=== PATIENT | male | born 1990 | race Hispanic/Latino ===

== ENCOUNTER 2018-11-23 06:02 | Emergency (ER) | payer OTHER ==
[~2018-11-23] VITALS: Ht 180.3 cm; Wt 92.0 kg
[2018-11-23] MEDS ORDERED: MELO15TA28 PO (06:09)
[2018-11-23] MEDS ORDERED: NS 1,000 ML IV ONE (06:30)
[2018-11-23] MEDS ORDERED: ASPIRIN 81 MG CHEW TABLET PO ONE (06:30)
[2018-11-23 07:14] LABS: BASO % 0.5 % (0.0-1.0); EOS # 0.2 10^3/uL (0.0-0.5); EOS % 2.5 % (0.0-3.0); HEMATOCRIT 39.9 % (42.0-52.0); HEMOGLOBIN 13.8 g/dl (13.5-17.5); LYMPH # 1.4 10^3/uL (1.5-5.0); LYMPH % 18.7 % (24.0-44.0); MEAN CORPUSCULAR HEMOGLOBIN 31.4 pg (27.0-33.0); MEAN CORPUSCULAR HGB CONC 34.6 g/dl (32.0-36.5); MEAN CORPUSCULAR VOLUME 90.7 fl (80.0-96.0); MONO # 0.5 10^3/uL (0.0-0.8); MONO % 6.5 % (0.0-5.0); NEUTROPHILS # 5.3 10^3/uL (1.5-8.5); NEUTROPHILS % 71.7 % (36.0-66.0); PLATELET COUNT, AUTOMATED 197 10^3/uL (150-450); WHITE BLOOD COUNT 7.3 10^3/uL (4.0-10.0)
--- NOTE | 2018-11-23 07:16 | ECGEPIP ---
- ED Test Date: 2018-11-23 Pat Name: HEATHER SOSA Department: Room: - Gender: Male Ortho Assistant: jimmy : 1990 Requested By: FRED Marie Order Number: [id number] Reading MD: Jose Carlos Dudley Measurements Intervals [place] Rate: 100 P: 68 AL: 142 QRS: 53 QRSD: 93 T: 37 QT: 356 QTc: 459 Interpretive Statements SINUS TACHYCARDIA NO PRIORS FOR COMPARISON Electronically Signed on 11-23-2018 7:16:53 EDT by Jose Carlos Dudley
[2018-11-23 07:26] LABS: INR 1.05; PROTHROMBIN TIME 13.4 SECONDS (11.8-14.0)
[2018-11-23 07:27] LABS: PARTIAL THROMBOPLASTIN TIME 31.6 SECONDS (25.0-38.4)
[2018-11-23 07:41] LABS: ALBUMIN 3.9 GM/DL (3.2-5.2); ALT/SGPT 23 U/L (12-78); BILIRUBIN,DIRECT 0.1 MG/DL (0.0-0.2); BILIRUBIN,TOTAL 0.5 MG/DL (0.2-1.0); BLOOD UREA NITROGEN 21 MG/DL (7-18); CALCIUM LEVEL 8.8 MG/DL (8.5-10.1); CARBON DIOXIDE LEVEL 27 MEQ/L (21-32); CHLORIDE LEVEL 107 MEQ/L (98-107); CPK CREATINE PHOSPHOKINASE 572 U/L (39-308); CREATININE FOR GFR 1.02 MG/DL (0.70-1.30); D-DIMER QUANT < 270 ng/ml (<500); GLOMERULAR FILTRATION RATE > 60.0 (>60); GLUCOSE, FASTING 101 MG/DL (70-100); LIPASE 154 U/L (73-393); MB/CK RELATIVE INDEX 0.52 (< OR =4); POTASSIUM SERUM 3.7 MEQ/L (3.5-5.1); SODIUM LEVEL 142 MEQ/L (136-145); TOTAL PROTEIN 6.8 GM/DL (6.4-8.2); TROPONIN I < 0.02 NG/ML (< 0.10)
[2018-11-23] MEDS ORDERED: KETO10TAB PO (07:58)
--- NOTE | 2018-11-23 07:59 | REP ---
Chest x-ray: Two views. History: Chest wall pain . Comparison study: No comparison study . Findings: The lungs are well inflated and free of infiltrate. The pleural angles are sharp. The heart size is normal. Pulmonary vasculature is not increased. No significant bony abnormality is seen. Impression: Negative chest x-ray. Electronically Signed by Mayco Galan MD 11/23/2018 07:50 A
[2018-11-23] MEDS ORDERED: KETOROLAC 30 MG/ML VIAL (J1885) IV ONE (08:00)
[2018-11-23] MEDS ORDERED: PERCOCET 5MG/325MG TAB PO ONE (08:45)
[2018-11-23 09:15] VITALS: BP 153/90
== END 2018-11-23 09:27 | disposition home or self-care (01) ==
LOC: M ED 06:02
DX: R07.89 Other chest pain (principal); R94.31 Abnormal electrocardiogram [ECG] [EKG]; Z79.899 Other long term (current) drug therapy
CPT/HCPCS: 71046; 80048; 80076; 82550; 82553; 83690; 84484; 85025; 85379; 85610; 85730; 93005; 93041; 94760; 96361; 96374; 99285; J1885

== ENCOUNTER 2018-11-26 11:51 | Emergency (ER) | payer OTHER ==
[~2018-11-26] VITALS: Ht 180.3 cm; Wt 91.7 kg
[~2018-11-26 11:51] MED LIST: KETO10TAB PO; MELO15TA28 PO
[2018-11-26] MEDS ORDERED: ZANA4TAB PO (13:15)
[2018-11-26] MEDS ORDERED: PRED20TA PO (13:15)
[2018-11-26] MEDS ORDERED: KETOROLAC 60 MG/2 ML VIAL (J1885) IM ONE (13:30)
--- NOTE | 2018-11-26 13:55 | REP ---
Left shoulder three views : There is no fracture or dislocation. Mineralization and joint spaces are normal. There are no calcifications or foreign bodies. Impression: Negative left shoulder . Electronically Signed by Trever Poon MD 11/26/2018 01:46 P
[2018-11-26 14:34] VITALS: BP 133/81
--- NOTE | 2018-11-26 20:31 | ECGEPIP ---
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
== END 2018-11-26 14:37 | disposition home or self-care (01) ==
LOC: M ED 11:51
DX: M25.512 Pain in left shoulder (principal); Z79.899 Other long term (current) drug therapy
CPT/HCPCS: 73030; 93005; 96372; 99284; J1885

== ENCOUNTER 2018-12-24 12:39 | Emergency (ER) | payer OTHER ==
[~2018-12-24] VITALS: Ht 180.3 cm; Wt 90.2 kg
[~2018-12-24 12:39] MED LIST changes: +PRED20TA PO; +ZANA4TAB PO
[2018-12-24] MEDS ORDERED: NS 1,000 ML IV ONE (13:15)
[2018-12-24 13:22] LABS: BASO % 0.5 % (0.0-1.0); EOS # 0.1 10^3/uL (0.0-0.5); EOS % 2.1 % (0.0-3.0); HEMATOCRIT 43.7 % (42.0-52.0); HEMOGLOBIN 14.7 g/dl (13.5-17.5); LYMPH # 2.1 10^3/uL (1.5-5.0); LYMPH % 32.3 % (24.0-44.0); MEAN CORPUSCULAR HEMOGLOBIN 30.1 pg (27.0-33.0); MEAN CORPUSCULAR HGB CONC 33.6 g/dl (32.0-36.5); MEAN CORPUSCULAR VOLUME 89.4 fl (80.0-96.0); MONO # 0.5 10^3/uL (0.0-0.8); MONO % 7.2 % (0.0-5.0); NEUTROPHILS # 3.8 10^3/uL (1.5-8.5); NEUTROPHILS % 57.6 % (36.0-66.0); PLATELET COUNT, AUTOMATED 253 10^3/uL (150-450); RED BLOOD COUNT 4.89 10^6/uL (4.30-6.10); WHITE BLOOD COUNT 6.5 10^3/uL (4.0-10.0)
--- NOTE | 2018-12-24 13:49 | REP ---
Clinical: Cough . Comparison: 11/23/2018 . Technique: PA and lateral. Findings: The mediastinum and cardiac silhouette are normal. The lung lucas are clear and without acute consolidation, effusion, or pneumothorax. The skeletal structures are intact and normal. Impression: 1. No acute cardiopulmonary process. Electronically Signed by Rudy Ramirez MD 12/24/2018 01:39 P
[2018-12-24 13:50] LABS: ALBUMIN 3.9 GM/DL (3.2-5.2); ALT/SGPT 23 U/L (12-78); BILIRUBIN,DIRECT 0.1 MG/DL (0.0-0.2); BILIRUBIN,TOTAL 0.6 MG/DL (0.2-1.0); BLOOD UREA NITROGEN 16 MG/DL (7-18); CALCIUM LEVEL 9.4 MG/DL (8.5-10.1); CARBON DIOXIDE LEVEL 31 MEQ/L (21-32); CHLORIDE LEVEL 106 MEQ/L (98-107); GLOMERULAR FILTRATION RATE > 60.0 (>60); GLUCOSE, FASTING 95 MG/DL (70-100); LIPASE 170 U/L (73-393); POTASSIUM SERUM 4.2 MEQ/L (3.5-5.1); SODIUM LEVEL 142 MEQ/L (136-145); TOTAL PROTEIN 7.4 GM/DL (6.4-8.2)
[2018-12-24] MEDS ORDERED: ONDANSETRON 4MG/2ML VIAL (J2405) IV ONE (14:00)
[2018-12-24 14:42] LABS: INFLUENZA A AMPLIFICATION NEGATIVE (NEGATIVE); INFLUENZA B AMPLIFICATION NEGATIVE (NEGATIVE)
[2018-12-24 14:58] VITALS: BP 131/68
== END 2018-12-24 15:36 | disposition home or self-care (01) ==
LOC: M ED 12:39
DX: A08.4 Viral intestinal infection, unspecified (principal)
CPT/HCPCS: 71046; 80048; 80076; 83690; 85025; 87502; 96361; 96374; 99284; J2405

== ENCOUNTER 2019-03-01 06:27 | Emergency (ER) | payer OTHER ==
[~2019-03-01] VITALS: Ht 180.3 cm; Wt 87.3 kg
[2019-03-01] MEDS ORDERED: LIDOCAINE 5% (LIDODERM) PATCH TD ONE (07:15)
[2019-03-01] MEDS ORDERED: KETOROLAC 60 MG/2 ML VIAL (J1885) IM ONE (07:15)
[2019-03-01] MEDS ORDERED: ACETAMINOPHEN 500 MG TAB PO ONE (07:15)
[2019-03-01] MEDS ORDERED: LIDO5DIS41 TD (08:24)
[2019-03-01] MEDS ORDERED: NAPR-837 PO (08:24)
[2019-03-01 08:35] VITALS: BP 123/73
[2019-03-01] MEDS ORDERED: **NOTE PATIENT COMMENT** MISC XX SCH (21:00)
[2019-03-02] MEDS ORDERED: ULTR50TA8 PO (23:05)
== END 2019-03-01 09:03 | disposition home or self-care (01) ==
LOC: M ED 06:27
DX: G89.29 Other chronic pain (principal); M25.562 Pain in left knee; M25.512 Pain in left shoulder; M54.5 Low back pain
CPT/HCPCS: 96372; 99283; J1885

== ENCOUNTER 2019-03-02 22:27 | Emergency (ER) | payer OTHER ==
[~2019-03-02] VITALS: Ht 180.3 cm; Wt 87.3 kg
[~2019-03-02 22:27] MED LIST changes: +LIDO5DIS41 TD; +NAPR-837 PO
[2019-03-02] MEDS ORDERED: ULTR50TA8 PO (23:05)
[2019-03-02] MEDS ORDERED: ACETAMINOPHEN TAB 650MG DOSE (2X325MG) PO ONE (23:15)
[2019-03-02] MEDS ORDERED: traMADol 50 MG TAB PO ONE (23:15)
[2019-03-03 00:18] VITALS: BP 144/89
[2019-03-03] MEDS ORDERED: ULTR50TA8 PO (15:13)
== END 2019-03-03 00:19 | disposition home or self-care (01) ==
LOC: M ED 22:27
DX: G89.29 Other chronic pain (principal); M25.512 Pain in left shoulder; M25.562 Pain in left knee

== ENCOUNTER 2019-04-10 07:23 | Day surgery (SDC) | payer OTHER ==
[~2019-04-10] VITALS: Ht 180.3 cm; Wt 92.1 kg
[~2019-04-10 07:23] MED LIST changes: +CELE1CAP9 PO; +LR 1,000 ML IV ONE; +NABU-119 PO; +ULTR50TA8 PO; +ceFAZolin SOD 2 GM in IV 1 EA IV ONE
[2019-04-10] MEDS ORDERED: LIDOCAINE 1% MDV 20ML VIAL ONE (07:24)
[2019-04-10] MEDS ORDERED: ROPIvacaine 0.5% 30 ML INJECTION (J2795 PER 1MG) ONE (07:24)
[2019-04-10] MEDS ORDERED: dexameTHASONE 10 MG/1 ML VIAL PRES.FREE (J1100) ONE (07:24)
[2019-04-10] MEDS ORDERED: dexameTHASONE 4 MG/ML 1ML VIAL (J1100) As Ordered ONE (08:16)
[2019-04-10] MEDS ORDERED: ONDANSETRON 4MG/2ML VIAL (J2405) As Ordered ONE (08:16)
[2019-04-10] MEDS ORDERED: propofoL 200 MG/20 ML VIAL As Ordered ONE ×2 (08:17→10:54)
[2019-04-10] MEDS ORDERED: ROCURONIUM BROMIDE 50 MG/5 ML VIAL As Ordered ONE ×2 (08:17→10:40)
[2019-04-10] MEDS ORDERED: MIDAZOLAM INJ 2 MG/2 ML VIAL (J2250) As Ordered ONE ×2 (08:17→09:39)
[2019-04-10] MEDS ORDERED: LIDOCAINE 2% INJ 100 MG/5 ML SDV (FOR ANES.) As Ordered ONE (08:17)
[2019-04-10] MEDS ORDERED: fentaNYL 100 MCG/2 ML INJECTION (J3010) As Ordered ONE ×2 (08:17→09:39)
[2019-04-10] MEDS ORDERED: EPINEPHrine 1MG/ML INJ 30ML MD-VIAL As Ordered ONE (10:04)
[2019-04-10] MEDS ORDERED: MIDAZOLAM INJ 2 MG/2 ML VIAL (J2250) IV ONE (10:15)
[2019-04-10] MEDS ORDERED: fentaNYL 100 MCG/2 ML INJECTION (J3010) IV ONE (10:15)
[2019-04-10] MEDS ORDERED: ACETAMINOPHEN 1000MG 100ML IV BTL (OFIRMEV) (J0131 PER 10MG) As Ordered ONE (10:34)
[2019-04-10] MEDS ORDERED: KETAMINE HCL 200 MG/20 ML VIAL As Ordered ONE (10:54)
[2019-04-10] MEDS ORDERED: SUGAMMADEX SODIUM 500 MG/5 ML VIAL (BRIDION) As Ordered ONE (10:54)
[2019-04-10] MEDS ORDERED: PHENYLephrine HCL 500 MCG/5 ML (100MCG/ML) SYRINGE (J2370) As Ordered ONE (10:57)
[2019-04-10] MEDS ORDERED: KETOROLAC 60 MG/2 ML VIAL (J1885) As Ordered ONE (12:01)
[2019-04-10] MEDS ORDERED: ONDANSETRON 4MG/2ML VIAL (J2405) IV PRN (13:00)
[2019-04-10] MEDS ORDERED: fentaNYL 100 MCG/2 ML INJECTION (J3010) IV PRN (13:00)
[2019-04-10] MEDS ORDERED: oxyCODONE 5MG TAB PO PRN ×3 (13:00)
[2019-04-10] MEDS ORDERED: LR 1,000 ML IV SCH (13:00)
[2019-04-10] MEDS ORDERED: HYDROMORPHONE HCL 0.5 MG/ 0.5 ML SYRINGE (J1170 PER 1) IV PRN (13:00)
[2019-04-10] MEDS ORDERED: METOCLOPRAMIDE INJ 10MG/2ML VIAL (J2765) As Ordered ONE (13:07)
[2019-04-10] MEDS ORDERED: METOCLOPRAMIDE INJ 10MG/2ML VIAL (J2765) IV ONE (14:00)
[2019-04-10 16:30] VITALS: BP 112/66
--- NOTE | 2019-04-11 06:59 | RO ---
DATE OF PROCEDURE: 04/10/2019 PREOPERATIVE DIAGNOSES: Left superior labral anterior to posterior (SLAP) tear and impingement syndrome. POSTOPERATIVE DIAGNOSES: Left superior labral anterior to posterior tear and impingement syndrome. PROCEDURE: Left superior labral anterior to posterior repair, acromioplasty, subacromial decompression, and distal clavicle excision. SURGEON: Alfredo Sales MD AUTOPSY PATHOLOGIST: Zaire Keller PA-C, who was essential for suture management. ANESTHESIA: INDICATION: This is a 29-year-old male that failed nonoperative modes of treatment. We discussed the risks and benefits of surgical repair including, but not limited to, infection, damage to surrounding structures, incomplete relief, and patient wished to proceed. PREOPERATIVE ANTIBIOTICS: 2 grams of Ancef. COMPLICATIONS: None. BLOOD LOSS: Minimal. OPERATIVE DESCRIPTION: Patient was brought back to the operating room (OR) in the supine position and underwent general anesthesia. Patient was then placed into the beach chair, and then the left arm was prepped and draped in the usual fashion. Once we had time-out and we were all agreement with the surgery, site, and patient, we made a stab incision for our posterior portal. Once within the glenohumeral joint, we established our anterior portal within the rotator interval, at which point we investigated the joint identifying a large type 2 SLAP tear going from about 11 o'clock to 3 o'clock with a Concord anterior labrum. No signs of subscapularis or superior cuff tear. Biceps looked well maintained within the groove. There were no arthritic changes to the humeral head or glenoid and no loose bodies within the axillary pouch. At this time, we used the elevator to elevate up the labrum completely from the glenoid neck in the superior aspect. We then used ring curettes to take off the superior leading edge of the articular cartilage until cortical bone. We then used a shaver to help prep the bone, at which point we used a 90 degrees to the right lasso and passed a #2 FiberLink at the most posterior aspect of the labrum, at which point we tried to make a stab incision from the lateral aspect of the acromion. The needle appeared to reach where we needed to go, and we were going through musculotendinous junction; however, when we were using the knife to create a portal, we were unable to reach that musculotendinous junction. Therefore, we abandoned that portal and established a Neviaser portal, at which point we then placed the 2.5 drilled portal at the most posterior aspect of our superior glenoid and then placed a 2.5 PushLock anchor to secure the posterior aspect of the labrum in place. After this, we then passed an additional #2 FiberLink around the 1-o'clock position and repeated the procedure through the Neviaser portal. We drilled and placed a 2.5 PushLock there. Then at that point, we passed one more #2-0 FiberLink from the anterior portal, right at the labral-biceps junction, and repeated our procedure using the Neviaser portal where we drilled and placed an addition 2.5 PushLock. Now we had three PushLocks and were able to establish a nice secure labral attachment. We were happy with the stability of this. Once this was done, we irrigated the joint thoroughly, trying to identify and remove all loose bodies. We then went to the subacromial space, localized a large anterior acromial spur. Once we did a subacromial decompression with a shaver and burner, we then used the bur to remove that anterior spur. I inspected the acromioclavicular (AC) joint; it did appear to be impinging upon the rotator cuff. Utilizing our anterior portal in the subacromial space, we did a distal clavicle excision of approximately 1.1 cm. At this point, subacromial space appeared to be adequately decompressed. We irrigated thoroughly and closed our portals. Dressing was placed. Patient was awakened, taken to postanesthesia care unit (PACU) in stable condition. POSTOPERATIVE PLAN: Patent will work on pain control and gentle range of motion, and we will see him in the office in 2 weeks to start him on a SLAP repair rehabilitation protocol and remove the sutures.
== END 2019-04-10 16:34 | disposition home or self-care (01) ==
LOC: M SDC 07:23
PROVIDERS: ATTEND Orthopaedic Surgery Hand Surgery
DX: M75.42 Impingement syndrome of left shoulder (principal); S43.432A Superior glenoid labrum lesion of left shoulder, initial encounter; X58.XXXA Exposure to other specified factors, initial encounter; Y92.89 Other specified places as the place of occurrence of the external cause; Y93.9 Activity, unspecified; Y99.9 Unspecified external cause status; Z79.899 Other long term (current) drug therapy
CPT/HCPCS: 29807; 29824; 29826; 64415; C1713; J0131; J0690; J1100; J1170; J1885; J2250; J2370; J2405; J2795; J3010

== ENCOUNTER → 2019-08-10 | Outpatient (CLI) | payer OTHER ==
[~2019-08-10] MED LIST changes: -LR 1,000 ML IV ONE; -ceFAZolin SOD 2 GM in IV 1 EA IV ONE
== END ==
LOC: M LABSMTC 10:54
PROVIDERS: ATTEND Physical Medicine & Rehabilitation
DX: Z11.59 Encounter for screening for other viral diseases (principal)

== ENCOUNTER → 2019-08-10 | Outpatient (CLI) | payer OTHER ==
[2019-08-10 12:26] LABS: PLATELET COUNT, AUTOMATED 233 10^3/uL (150-450)
[2019-08-10 12:38] LABS: INR 0.95; PROTHROMBIN TIME 12.4 SECONDS (11.8-14.0)
[2019-08-10 12:39] LABS: COLLAGEN EPINEPHRINE 100 SECONDS (74-162)
[2019-08-10 13:03] LABS: ERYTHROCYTE SEDIMENTATION RATE 3 mm/hr (0-15)
== END ==
LOC: M LAB 11:23
PROVIDERS: ATTEND Physical Medicine & Rehabilitation
DX: Z01.818 Encounter for other preprocedural examination (principal); M51.36 Other intervertebral disc degeneration, lumbar region; Z11.59 Encounter for screening for other viral diseases
CPT/HCPCS: 36415; 81374; 85027; 85576; 85610; 85652; 85730; 86140; U0003

== ENCOUNTER → 2019-11-14 | Outpatient (CLI) | payer OTHER ==
[~2019-11-14] MED LIST changes: +ISOVUE-300 61% 50ML VIAL As Ordered ONE; -NABU-119 PO; +NABU-53 PO; +PROHANCE 279.3MG/ML 5ML VIAL As Ordered ONE
--- NOTE | 2019-11-22 12:49 | REP ---
MR ARTHROGRAM OF THE LEFT SHOULDER HISTORY: Pain. Prior dislocation. FINDINGS: MR arthrography of the left shoulder was performed with multiple sequences obtained prior to and following arthrogram procedure. On T2 weighted images, there is mild increased signal in the supraspinatus tendon beneath the acromion suggestive of a mild strain or intrasubstance tear. The rotator cuff tendons are intact. There are mild hypertrophic degenerative changes of the acromioclavicular joint with mild subchondral marrow edema in the distal end of the clavicle and mild fluid in the joint. There is an os acromiale which appears fused. The acromion is type 2. The biceps tendon is within the bicipital groove with no tenosynovitis. There is no Hill-Sachs deformity. Deltoid muscle demonstrates no abnormal signal. Biceps labral complex is intact. There appears to be mild fraying of the superior labrum. Otherwise no discreet labral tear is seen. There is mild diffuse chondromalacia of the glenoid and humeral head. There is mild subchondral marrow edema in the superior glenoid. A few tiny subcortical cysts are seen in the superolateral humeral head. There is a normal amount of joint fluid. Tiny amount of fluid is seen in the subacromial bursa. IMPRESSION: Mild strain or intrasubstance partial tear supraspinatus tendon. Os acromiale is essentially fused. Mild hypertrophic degenerative changes of the acromioclavicular joint with type 2 acromion. There appears to be mild fraying of the superior labrum without a discreet labral tear. Mild chondromalacia at the glenohumeral joint. Mild subchondral marrow edema in the superior glenoid. MTDD
== END ==
LOC: M RADPRO 06:32
PROVIDERS: ATTEND Physician Assistant
DX: M25.512 Pain in left shoulder (principal)
CPT/HCPCS: 23350; 73223; 77002; A9576; Q9967

== ENCOUNTER 2021-04-24 09:33 | Day surgery (SDC) | payer OTHER ==
[~2021-04-24] VITALS: Ht 180.3 cm; Wt 88.9 kg
[~2021-04-24 09:33] MED LIST changes: -ISOVUE-300 61% 50ML VIAL As Ordered ONE; +LIDOCAINE 1% MDV 20ML VIAL SQ PRN; +LR 1,000 ML IV ONE; -NABU-53 PO; +NABU-73 PO; -PROHANCE 279.3MG/ML 5ML VIAL As Ordered ONE; +ceFAZolin SOD 2 GM in IV 1 EA IV ONE
[2021-04-24] MEDS ORDERED: GENTAMICIN SULF 80MG/2ML VIAL As Ordered ONE (10:06)
[2021-04-24] MEDS ORDERED: dexameTHASONE 4 MG/ML 1ML VIAL (J1100 PER 1MG) As Ordered ONE ×2 (10:06→12:34)
[2021-04-24] MEDS ORDERED: LIDOCAINE 2% MDV 20ML VIAL As Ordered ONE (10:06)
[2021-04-24] MEDS ORDERED: BUPIVACAINE HCL 0.5% 10ML VIAL As Ordered ONE (10:06)
[2021-04-24] MEDS ORDERED: LIDOCAINE 2% 100MG/5ML SDV (FOR ANES.) As Ordered ONE (12:34)
[2021-04-24] MEDS ORDERED: ONDANSETRON 4MG/2ML VIAL As Ordered ONE (12:34)
[2021-04-24] MEDS ORDERED: propofoL 200 MG/20 ML VIAL As Ordered ONE (12:34)
[2021-04-24] MEDS ORDERED: KETOROLAC 60MG 2ML VIAL As Ordered ONE (12:34)
[2021-04-24] MEDS ORDERED: fentaNYL 100 MCG/2 ML INJECTION As Ordered ONE (12:34)
[2021-04-24] MEDS ORDERED: METOCLOPRAMIDE INJ 10MG/2ML VIAL (J2765 PER 1) As Ordered ONE (12:34)
[2021-04-24] MEDS ORDERED: MIDAZOLAM INJ 2MG/2ML VIAL (J2250 PER 1MG) As Ordered ONE (12:34)
[2021-04-24] MEDS ORDERED: ACETAMINOPHEN 1000MG 100ML IV BTL (OFIRMEV) (J0131 PER 10MG) As Ordered ONE (12:34)
[2021-04-24] MEDS ORDERED: SUGAMMADEX SODIUM 500 MG/5 ML VIAL (BRIDION) As Ordered ONE (12:34)
[2021-04-24] MEDS ORDERED: ROCURONIUM BROMIDE 50 MG/5 ML VIAL As Ordered ONE (12:34)
[2021-04-24] MEDS ORDERED: oxyCODONE 5MG TAB PO PRN (13:55)
[2021-04-24] MEDS ORDERED: LR 1,000 ML IV SCH (13:55)
[2021-04-24] MEDS ORDERED: fentaNYL 100 MCG/2 ML INJECTION IV PRN (13:55)
[2021-04-24] MEDS ORDERED: METOCLOPRAMIDE INJ 10MG/2ML VIAL (J2765 PER 1) IV PRN (13:55)
[2021-04-24] MEDS ORDERED: ONDANSETRON 4MG/2ML VIAL IV PRN (13:55)
[2021-04-24 14:58] VITALS: BP 133/76
== END 2021-04-24 14:59 | disposition home or self-care (01) ==
LOC: M SDC 09:33
PROVIDERS: ATTEND Podiatrist
DX: M92.61 Juvenile osteochondrosis of tarsus, right ankle (principal); M79.671 Pain in right foot
CPT/HCPCS: 28118; 73650; 88300; 97116; J0131; J0690; J1100; J1580; J1885; J2250; J2405; J2765; J3010

== ENCOUNTER 2022-08-17 11:55 | Emergency (ER) | payer OTHER ==
[~2022-08-17] VITALS: Ht 180.3 cm; Wt 87.8 kg
[~2022-08-17 11:55] MED LIST changes: -LIDOCAINE 1% MDV 20ML VIAL SQ PRN; -LR 1,000 ML IV ONE; -ceFAZolin SOD 2 GM in IV 1 EA IV ONE
[2022-08-17 14:26] LABS: HEMATOCRIT 42.3 % (42.0-52.0); HEMOGLOBIN 14.5 g/dl (13.5-17.5); LYMPH # 1.2 10^3/uL (1.5-5.0); LYMPH % 28.4 % (24.0-44.0); MEAN CORPUSCULAR HGB CONC 34.3 g/dl (32.0-36.5); MEAN CORPUSCULAR VOLUME 90.4 fl (80.0-96.0); MONO # 0.4 10^3/uL (0.0-0.8); MONO % 9.6 % (2.0-8.0); NEUTROPHILS # 2.5 10^3/uL (1.5-8.5); NEUTROPHILS % 59.5 % (36.0-66.0); PLATELET COUNT, AUTOMATED 207 10^3/uL (150-450); RED BLOOD COUNT 4.68 10^6/uL (4.30-6.10); WHITE BLOOD COUNT 4.2 10^3/uL (4.0-10.0)
[2022-08-17 14:41] LABS: PARTIAL THROMBOPLASTIN TIME 31.9 SECONDS (24.8-34.2)
[2022-08-17 14:45] LABS: D-DIMER QUANT < 270 ng/ml (<500)
[2022-08-17 15:01] LABS: ERYTHROCYTE SEDIMENTATION RATE < 1 mm/hr (0-15)
[2022-08-17 15:06] LABS: C REACTIVE PROTEIN QUANTITATIV < 0.40 MG/DL (<1.0); LIPASE 37 U/L (12-53)
[2022-08-17 15:08] LABS: ALBUMIN 4.1 G/DL (3.2-5.2); ALKALINE PHOSPHATASE 56 U/L (46-116); ALT/SGPT 13 U/L (7.0-40); AST/SGOT 12 U/L (<34); BILIRUBIN,DIRECT 0.2 MG/DL (<0.4); BILIRUBIN,TOTAL 0.7 MG/DL (0.3-1.2); BLOOD UREA NITROGEN 14 MG/DL (9-23); CALCIUM LEVEL 9.7 MG/DL (8.5-10.1); CARBON DIOXIDE LEVEL 28 MMOL/L (20-31); CHLORIDE LEVEL 106 MMOL/L (98-107); CK-MB VALUE MASS < 1.0 NG/ML (<3.6); CREATININE FOR GFR 0.78 MG/DL (0.70-1.30); GLOMERULAR FILTRATION RATE > 60.0 (>60); GLUCOSE, FASTING 87 MG/DL (60-100); POTASSIUM SERUM 4.3 MMOL/L (3.5-5.1); SODIUM LEVEL 139 MMOL/L (136-145); TOTAL PROTEIN 6.6 G/DL (5.7-8.2)
[2022-08-17 15:11] LABS: FREE T4 1.13 NG/DL (0.89-1.76); THYROID STIMULATING HORMONE 0.599 uIU/ML (0.55-4.78)
[2022-08-17 15:12] LABS: CPK CREATINE PHOSPHOKINASE 157 U/L (46-171); MB/CK RELATIVE INDEX 0.63 (< OR =4)
[2022-08-17 15:32] LABS: CK-MB VALUE MASS < 1.0 NG/ML (<3.6)
[2022-08-17 15:40] VITALS: BP 111/77; TEMP 97.2; O2SAT 98
[2022-08-17 15:54] LABS: CPK CREATINE PHOSPHOKINASE 147 U/L (46-171); MB/CK RELATIVE INDEX 0.68 (< OR =4)
== END 2022-08-17 15:48 | disposition home or self-care (01) ==
LOC: M ED 11:55
DX: R07.89 Other chest pain (principal); R56.9 Unspecified convulsions; Z82.49 Family history of ischemic heart disease and other diseases of the circulatory system

== ENCOUNTER → 2024-01-09 | Outpatient (CLI) | payer OTHER ==
[~2024-01-09] MED LIST changes: +CELE0.09 PO; -CELE1CAP9 PO
== END ==
LOC: M PLAIMG 13:42
PROVIDERS: ATTEND Family Medicine
DX: R39.11 Hesitancy of micturition (principal); R10.30 Lower abdominal pain, unspecified; R39.14 Feeling of incomplete bladder emptying